=== PATIENT | female | born 1995 | race Caucasian/White ===

== ENCOUNTER 2018-11-12 04:58 | Emergency (ER) | payer OTHER ==
[2018-11-12] MEDS: DIPHTH/TET/ACEL PERTUSS (ADULT) 0.5 ML VIAL IM* (06:00)
[2018-11-12] MEDS: TETRACAINE 0.5% 4 ML OPH BOTH EYES (06:03)
[2018-11-12] MEDS: FLUORESCEIN STRIP BOTH EYES (06:03)
[2018-11-12] MEDS: SODIUM CHLORIDE 0.9% 1L IRRIG IRR (06:06)
[2018-11-12 06:48] LABS: HEPATITIS B SURFACE ANTIGEN NEGATIVE (NEGATIVE)
[2018-11-12] MEDS: ERYTHROMYCIN 1 GM OPH OINT BOTH EYES (07:01)
[2018-11-12 07:05] LABS: HEPATITIS C VIRAL ANTIBODY NEGATIVE (NEGATIVE); HIV 1&2 ANTIBODY NEGATIVE (NEGATIVE)
[2018-11-12 08:04] LABS: HEPATITIS B SURFACE ANTIBODY POSITIVE (NEGATIVE)
== END 2018-11-12 07:30 | disposition home or self-care (01) ==
LOC: FTE 04:58
DX: T65.91XA Toxic effect of unspecified substance, accidental (unintentional), initial encounter (principal); X58.XXXA Exposure to other specified factors, initial encounter; Y92.89 Other specified places as the place of occurrence of the external cause; Z23 Encounter for immunization
CPT/HCPCS: 86703; 86706; 86803; 87340; 87536; 90471; 90715; 99283-25